=== PATIENT | male | born 1980 | race American Indian/Alaskan Native ===

== ENCOUNTER 2017-03-19 21:25 | Observation (INO) | payer MEDICAID, OTHER ==
[2017-03-19 21:31] VITALS: BMI 35.2
[2017-03-19] MEDS ORDERED: Nitroglycerin 2% Ointment Foilpak UD TOP STA (21:48)
[2017-03-19] MEDS ORDERED: Enoxaparin 120 mg Syringe SC STA (21:52)
--- NOTE | 2017-03-19 22:04 | ED PDOC ---
Arrival/HPI - General Chief Complaint: Chest Pain Time Seen by Provider: 03/19/17 21:46 Historian: Patient - History of Present Illness Narrative History of Present Illness (Text): 03/19/17 21:46 Andrea Sorto is a 36 year old male, whose past medical history includes smoking and hypertension, complaining of 1 day duration of nausea and chest pain with shortness of breath and dyspnea on exertion. Patient states that there are no relieving or exacerbating symptoms. Patient denies any fevers, chills, or any other complaint at this time. PMD: None Time/Duration: 24 hours Symptom Onset: Gradual Symptom Course: Unchanged Severity Level: Mild Activities at Onset: Rest Context: Home Past Medical History - Provider Review Nursing Documentation Reviewed: Yes - Infectious Disease Hx of Infectious Diseases: None - Tetanus Immunization Tetanus Immunization: Unknown - Cardiac Hx Hypertension: Yes - Pulmonary Hx Asthma: Yes Hx Bronchitis: Yes - Psychiatric Hx Depression: No Hx Emotional Abuse: No Hx Physical Abuse: No Hx Substance Use: Yes - Surgical History Hx Orthopedic Surgery: Yes (R LEG SURGERY) Other/Comment: R ankle surgery - Anesthesia Hx Anesthesia: Yes Hx Anesthesia Reactions: No Hx Malignant Hyperthermia: No - Suicidal Assessment Feels Threatened In Home Enviroment: No Family/Social History - Physician Review Nursing Documentation Reviewed: Yes Family/Social History: No Known Family HX Smoking Status: Former Smoker Hx Alcohol Use: Yes Frequency of alcohol use: Socially Hx Substance Use: Yes Substance used: majuana - last used 03/18/2017 Hx Substance Use Treatment: No Allergies/Home Meds Allergies/Adverse Reactions: Allergies No Known Allergies Allergy (Verified 06/30/14 15:27) Physical Exam - Physical Exam Narrative Physical Exam (Text): - Review of Systems Constitutional: Normal. absent: Fatigue, Weight Change, Fevers Eyes: Normal ENT: Normal Respiratory: Shortness of breath. Dyspnea on exertion. absent: Cough, Sputum Cardiovascular: Chest Pain absent: Palpitations, Syncope Gastrointestinal: Nausea absent: Abdominal pain, Diarrhea, Vomiting Genitourinary: Normal. absent: Dysuria, Frequency, Hematuria Musculoskeletal: Normal. absent: Arthralgias, Back Pain, Neck Pain Skin: Normal Neurological: Normal absent: Focal Weakness Endocrine: Normal Hemo/Lymphatic: Normal Psychiatric: Normal - Physical exam Patient appears age appropriate, speaking full sentences without difficulty. - Systems Exam Head: Present: Atraumatic, Normocephalic Pupils: Present: PERRL Extraocular Muscles: Present: EOMI Conjunctiva: Present: Normal Mouth: Present: Moist Mucous Membranes Neck: Present: Normal Range of Motion. No: MIDLINE TENDERNESS, Paraspinal Tenderness Respiratory/Chest: Present: Clear to Auscultation, Good Air Exchange. No: Respiratory Distress, Accessory Muscle Use, Tachypneic Cardiovascular: Present: Regular Rate and Rhythm, Normal S1, S2, Peripheral Pulses Present. No: Murmurs Abdomen: Present: Normal Bowel Sounds, No: Tenderness, Peritoneal Signs, Rebound, Guarding, Distention Back: Present: Normal Inspection. No: Midline Tenderness, Paraspinal Tenderness Upper Extremity: Present: Normal Inspection. No: Cyanosis, Edema Lower Extremity: Present: Normal Inspection. No: Edema Neurological: Present: GCS=15, Speech Normal, cranial nerves II through XII fully intact with no cerebellar abnormality, neuro-sensory fully intact. No focal neurological deficits. Skin: Present: Warm, Dry, Normal Color. No: Rashes Lymphatic: Present: OX3, NI, NC Psychiatric: Present: Alert, Oriented x 3, Normal Insight, Normal Concentration Vital Signs Reviewed: Yes Vital Signs Temp Pulse Resp BP Pulse Ox 03/19/17 22:05 97.8 F 03/19/17 21:25 45 L 20 189/117 H 98 Temperature: Afebrile Blood Pressure: Hypertensive Pulse: Bradycardic Respiratory Rate: Normal Medical Decision Making ED Course and Treatment: 03/19/17 21:46 Impression: 36 year old male complaining of nausea and chest pain with shortness of breath and dyspnea on exertion for 1 day. States he has a hx of smoking and HTN. Differential Diagnosis include but are not limited to: ACS vs. Pneumonia Plan: -- EKG -- Chest X-ray -- Labs -- Aspirin, Lovenox, and Nitro-Bid -- Reassess and disposition Prior Visits: Notes and results from previous visits were reviewed. Patient last seen in ED on 07/03/14 for an evaluation of 2 days duration of epigastric abdominal pain. Patient was discharged home. Progress Notes: EKG shows Sinus bradycardia at [address]-depression in Lateral leads. J-point ST-elevation in precordial leads. with no prior for comparison. Interpreted by me. 03/19/17 21:[address] Mathias in detail and EKG sent, who states to start treating as ACS with aspirin, nitroglycerin, anticoagulants. States that this is not a code STEMI. 03/19/17 23:01 Patient started to complain of shortness of breath. Repeat EKG shows no evolving changes. Patient is speaking in full sentences without difficulty. CXR shows cardiomegaly with some vasc. congestion, no infiltrates. Interpreted by me. lasix ordered 03/19/17 23:26 pt in no distress at this time aware of and agrees with obs in the hospital states he has no PMD dw Tracey Jones and Dorota Irwin, aware of and agree with obs/tele 03/19/17 23:30 - Lab Interpretations Lab Results: 03/19/17 22:24 03/19/17 22:24 Lab Results 03/19/17 22:24: Sodium 140, Potassium 3.7, Chloride 104, Carbon Dioxide 24, Anion Gap 16, BUN 13, Creatinine 1.0, Est GFR ( Amer) > 60, Est GFR (Non- Af Amer) > 60, Random Glucose 108, Calcium 10.2, Total Bilirubin 0.8, AST 34, ALT 52, Alkaline Phosphatase 84, Lactate Dehydrogenase 612, Total Creatine Kinase 563 H, CK-MB (CK-2) 5.0 H, CK-MB (CK-2) % 0.9 L, Troponin I 0.02, NT-Pro- B Natriuret Pep 694 H, Total Protein 8.2, Albumin 4.9 H, Globulin 3.3, Albumin/ Globulin Ratio 1.5 03/19/17 22:24: PT 10.5, INR 0.97, APTT 26.8 03/19/17 22:24: WBC 10.5, RBC 5.08, Hgb 16.0, Hct 46.0, MCV 90.6, MCH 31.5, MCHC 34.8, RDW 13.4, Plt Count 223, MPV 10.9, Gran % 85.6 H, Lymph % (Auto) 11.0 L, Darke % (Auto) 3.1, Eos % (Auto) 0.1 L, Baso % (Auto) 0.2, Gran # 8.99 H , Lymph # 1.2, Darke # 0.3, Eos # 0.0, Baso # 0.02 I have reviewed the lab results: Yes - RAD Interpretation Radiology Orders: 03/19/17 21:49 CHEST PORTABLE [RAD] Stat - Medication Orders Current Medication Orders: Aspirin (Ecotrin) 81 mg PO DAILY GLENN Atorvastatin Calcium (Lipitor) 80 mg PO STAT STA Stop: 03/19/17 23:24 Enoxaparin Sodium (Lovenox) 110 mg SC Q24H GLENN PRN Reason: Protocol Lisinopril (Zestril) 5 mg PO STAT STA Stop: 03/19/17 23:24 Lisinopril (Zestril) 5 mg PO DAILY GLENN Metoprolol Tartrate (Lopressor) 25 mg PO STAT STA Stop: 03/19/17 23:23 Metoprolol Tartrate (Lopressor) 25 mg PO BID GLENN Nitroglycerin (Nitrostat Sl Tab) 0.3 mg SL Q5M PRN PRN Reason: chest pain Pantoprazole Sodium (Protonix Ec Tab) 40 mg PO ACB GLENN Discontinued Medications Aspirin (Aspirin Chewable) 324 mg PO STAT STA Stop: 03/19/17 21:49 Last Admin: 03/19/17 22:00 Dose: 324 mg Enoxaparin Sodium (Lovenox) 110 mg SC STAT STA PRN Reason: Protocol Stop: 03/19/17 21:53 Last Admin: 03/19/17 22:16 Dose: 110 mg Furosemide (Lasix) 40 mg IVP STAT STA Stop: 03/19/17 23:12 Nitroglycerin (Nitro-Bid 2% Oint) 1 ea TOP STAT STA Stop: 03/19/17 21:49 Last Admin: 03/19/17 22:00 Dose: 1 ea - Scribe Statement The provider has reviewed the documentation as recorded by the Tania Clinton Provider Scribe Attestation: All medical record entries made by the Scribe were at my direction and personally dictated by me. I have reviewed the chart and agree that the record accurately reflects my personal performance of the history, physical exam, medical decision making, and the department course for this patient. I have also personally directed, reviewed, and agree with the discharge instructions and disposition. Disposition/Present on Arrival - Present on Arrival Any Indicators Present on Arrival: No History of DVT/PE: No History of Uncontrolled Diabetes: No Urinary Catheter: No History of Decub. Ulcer: No History Surgical Site Infection Following: None - Disposition Have Diagnosis and Disposition been Completed?: Yes Diagnosis: Chest pain Disposition: HOSPITALIZED Disposition Time: 23:27 Patient Plan: Observation Patient Problems: Current Active Problems Problem Status Onset Chest pain Acute Condition: FAIR Discharge Instructions (ExitCare): Chest Pain (ED) Referrals: PCP,NO [Primary Care Provider] - Follow up with primary
[2017-03-19 22:25] LABS: ADD MANUAL DIFF? NO
[2017-03-19 22:34] LABS: BASO # 0.02 K/mm3 (0.0-2.0); BASO % 0.2 % (0.0-3.0); EOS % 0.1 % (1.5-5.0); GRAN # 8.99 (1.4-6.5); GRAN % 85.6 % (50.0-68.0); LYMPH # 1.2 (1.2-3.4); MEAN CELL VOLUME 90.6 fL (80.0-105.0); MEAN CORPUSCULAR HEMOGLOBIN 31.5 pg (25.0-35.0); MEAN CORPUSCULAR HGB CONC 34.8 g/dl (31.0-37.0); MEAN PLATELET VOLUME 10.9 fl (7.0-11.0); MONO # 0.3 (0.1-0.6); MONO % 3.1 % (1.0-6.0); PLATELET COUNT 223 10^3/uL (120.0-450.0); RED CELL DISTRIBUTION WIDTH 13.4 % (11.5-14.5); WHITE BLOOD COUNT 10.5 10^3/ul (4.5-11.0)
[2017-03-19 22:46] LABS: INR 0.97 (0.93-1.08); PARTIAL THROMBOPLASTIN TIME 26.8 Seconds (23.7-30.8)
[2017-03-19 22:48] LABS: ALB/GLOB RATIO 1.5 (1.1-1.8); ALKALINE PHOSPHATASE 84 U/L (38-133); ALT/SGPT 52 U/L (7-56); AST/SGOT 34 U/L (15-59); BILIRUBIN,TOTAL 0.8 mg/dL (0.2-1.3); BLOOD UREA NITROGEN 13 mg/dL (7-21); CALCIUM 10.2 mg/dL (8.4-10.5); CARBON DIOXIDE 24 mmol/L (21-33); CHLORIDE 104 mmol/L (98-107); GFR AFRICAN-AMERICAN > 60; GLUCOSE,RANDOM 108 mg/dL (70-110); POTASSIUM 3.7 mmol/L (3.6-5.0); SODIUM 140 mmol/L (132-148); TOTAL PROTEIN 8.2 g/dL (5.8-8.3)
[2017-03-19 22:54] LABS: TROPONIN I 0.02 ng/mL
[2017-03-19] MEDS ORDERED: Morphine 2 mg/ml ISec IVP PRN (23:25)
[2017-03-19] MEDS ORDERED: Levalbuterol 1.25 MG/3 ML Inhal Soln UD IH STA (23:44)
[2017-03-20] MEDS: Famotidine 20mg/50ml 20 MG/50 ML BAG IV SCH ×3 (00:22→21:29)
--- NOTE | 2017-03-20 00:26 | CP.PCM.HP ---
History of Present Illness - History of Present Illness History of Present Illness: CC: Chest pain and vomiting x4 This patient is a 36yo M who comes in with typical chest pain since 12 noon today; substernal not radiating anywhere associated with SOB and vomiting times 4 NBNB. Patient states he has never had chest pain like this before. Is also complaining of weakness, generalized since the event. Patient was at rest when the chest pain came on. Sublingual nitroglycerin helped the pain. Patient denies fevers/chills, HOU, abdominal pain, V/D, dysuria/freq/urg, leg swelling/ pain, decreased exercise tolerance, sleeps with 2 pillows and had unlimited exercise tolerance previously. PMhx: HTN, Mild Intermittent Asthma never been intubated Allergies: None Surg: None Meds: Proventil PRN, no others FamHx: Father [place] at 50 w/ CABG, Grandmother of [place] at 47, grandfathers sister of [place] at 33, no cancer, HTN, HLD, DM in all family members Social: Lives at home, currently unemployed, admits to daily marijuana use, stopped smoking 5 years ago, 1ppd/20 years previously, denies illicit drugs Present on Admission - Present on Admission Any Indicators Present on Admission: No History of DVT/PE: No History of Uncontrolled Diabetes: No Urinary Catheter: No Decubitus Ulcer Present: No Past Patient History - Infectious Disease Hx of Infectious Diseases: None - Tetanus Immunizations Tetanus Immunization: Unknown - Past Social History Smoking Status: Former Smoker - CARDIAC Hx Hypertension: Yes - PULMONARY Hx Asthma: Yes Hx Bronchitis: Yes - PSYCHIATRIC Hx Depression: No Hx Emotional Abuse: No Hx Physical Abuse: No Hx Substance Use: Yes - SURGICAL HISTORY Hx Orthopedic Surgery: Yes (R LEG SURGERY) Other/Comment: R ankle surgery - ANESTHESIA Hx Anesthesia: Yes Hx Anesthesia Reactions: No Hx Malignant Hyperthermia: No Meds Allergies/Adverse Reactions: Allergies Allergy/AdvReac Type Severity Reaction Status Date / Time No Known Allergies Allergy Verified 06/30/14 15:27 Physical Exam - Constitutional Additional comments: lethargic male sitting up in bed, speaking in full sentences coherently, diaphoretic - Head Exam Head Exam: ATRAUMATIC - Eye Exam Eye Exam: EOMI - ENT Exam ENT Exam: Mucous Membranes Moist - Neck Exam Neck exam: Positive for: Full Rom. Negative for: Lymphadenopathy - Respiratory Exam Respiratory Exam: Wheezes (b/l crackles at bases), NORMAL BREATHING PATTERN. absent: Accessory Muscle Use, Chest Wall Tenderness, Decreased Breath Sounds, Clear to Auscultation Bilateral, Prolonged Expiratory Phase, Respiratory Distress, Stridor - Cardiovascular Exam Cardiovascular Exam: REGULAR RHYTHM, +S1, +S2. absent: Tachycardia ( bradycardia ), Systolic Murmur - GI/Abdominal Exam GI & Abdominal Exam: Normal Bowel Sounds, Soft. absent: Tenderness - Rectal Exam Rectal Exam: Deferred - Extremities Exam Extremities exam: Positive for: full ROM, normal capillary refill, normal inspection, pedal pulses present. Negative for: calf tenderness, joint swelling , pedal edema, tenderness - Back Exam Back exam: NORMAL INSPECTION. absent: CVA tenderness (L), CVA tenderness (R) - Neurological Exam Neurological exam: Alert, CN II-XII Intact, Oriented x3 - Psychiatric Exam Psychiatric exam: Normal Affect - Skin Skin Exam: Intact Results - Vital Signs Recent Vital Signs: Last Vital Signs Temp 97.8 F 03/19/17 22:05 Pulse 45 L 03/19/17 21:25 Resp 20 03/19/17 21:25 BP 161/79 H 03/20/17 00:21 Pulse Ox 98 03/19/17 21:25 - Labs Result Diagrams: 03/19/17 22:24 03/19/17 22:24 Assessment & Plan - Assessment and Plan (Free Text) Assessment: 36yo M admitted for Chest Pain ACS -Aspirin High dose, Lipitor 80, Plavix 300, Lovenox 110 given in ED -will continue Lipitor, Aspirin 81, Plavix 75, Lovenox 110 BID, Lisinopril low dose, hold beta jesse while bradycardic -Cardiology Consult: Dr. Mathias; appreciate recs; EKG originally showed suspicious ST segment elevations in V1/V2/V3 however on comparison from EKG from 2015 looks unchanged with a possible incomplete RBBB -NPO for possible cath procedure -strong family history; smoker; HTN -CKMB 5.0, BNP 694, troponin .02; will trend; likely new onset CHF -Telemetry monitoring -Morphine PRN, Sublingual Nitro PRN; Supplemental O2 PRN only if hypoxic as it is detrimental in [place] to give supplemental O2 when there is no hypoxia -STAT Echo; f/u results HTN -started Lisinopril 5mg; titrate accordingly Mild Intermittent Asthma -Xopenex PRN Prophylaxis -Lovenox 110 -NPO -Pepcid Case dicussed and seen with Dr. Irwin Decision To Admit - Pt Status Changed To: Hospital Disposition Of: Inpatient Admission - Admit Certification Admit to Inpatient:: After my assessment, the patient will require hospitalization for at least two midnights. This is because of the severity of symptoms shown, intensity of services needed, and/or the medical risk in this patient being treated as an outpatient. - . Bed Request Type: Telemetry Admitting Physician: Jamee Irwin
[2017-03-20 02:31] LABS: CHOLESTEROL 193 mg/dL (130-200)
[2017-03-20 06:44] LABS: ADD MANUAL DIFF? NO
[2017-03-20 07:03] LABS: BASO # 0.01 K/mm3 (0.0-2.0); BASO % 0.1 % (0.0-3.0); EOS % 0.1 % (1.5-5.0); GRAN # 9.21 (1.4-6.5); GRAN % 80.7 % (50.0-68.0); HEMATOCRIT 42.6 % (42.0-52.0); LYMPH # 1.6 (1.2-3.4); LYMPH % 13.8 % (22.0-35.0); MEAN CELL VOLUME 90.3 fL (80.0-105.0); MEAN CORPUSCULAR HEMOGLOBIN 30.5 pg (25.0-35.0); MEAN CORPUSCULAR HGB CONC 33.8 g/dl (31.0-37.0); MEAN PLATELET VOLUME 10.9 fl (7.0-11.0); MONO # 0.6 (0.1-0.6); MONO % 5.3 % (1.0-6.0); PLATELET COUNT 214 10^3/uL (120.0-450.0); RED CELL DISTRIBUTION WIDTH 13.3 % (11.5-14.5); WHITE BLOOD COUNT 11.4 10^3/ul (4.5-11.0)
[2017-03-20 07:28] LABS: ALB/GLOB RATIO 1.3 (1.1-1.8); ALKALINE PHOSPHATASE 82 U/L (38-133); ALT/SGPT 42 U/L (7-56); AST/SGOT 78 U/L (15-59); BILIRUBIN,TOTAL 0.8 mg/dL (0.2-1.3); BLOOD UREA NITROGEN 13 mg/dL (7-21); CALCIUM 9.6 mg/dL (8.4-10.5); CARBON DIOXIDE 23 mmol/L (21-33); CHLORIDE 106 mmol/L (98-107); GFR AFRICAN-AMERICAN > 60; GLUCOSE,RANDOM 105 mg/dL (70-110); POTASSIUM 3.6 mmol/L (3.6-5.0); SODIUM 140 mmol/L (132-148); TOTAL PROTEIN 7.3 g/dL (5.8-8.3)
[2017-03-20] MEDS ORDERED: Pantoprazole 40 mg EC Tab PO SCH (07:30)
[2017-03-20 07:38] LABS: TROPONIN I 0.04 ng/mL
[2017-03-20 08:24] VITALS: O2SAT 99
[2017-03-20] MEDS ORDERED: Potassium Chloride 20 mEq ER Tab PO ONE (08:54)
[2017-03-20] MEDS ORDERED: Enoxaparin 120 mg Syringe SC SCH ×2 (10:00)
--- NOTE | 2017-03-20 12:53 | RAD ---
HISTORY: cough COMPARISON: No prior. FINDINGS: LUNGS: No active pulmonary disease. PLEURA: No significant pleural effusion identified, no pneumothorax apparent. CARDIOVASCULAR: Normal. OSSEOUS STRUCTURES: No significant abnormalities. VISUALIZED UPPER ABDOMEN: Normal. OTHER FINDINGS: None. IMPRESSION: No active disease.
[2017-03-20 13:08] LABS: TROPONIN I 0.04 ng/mL
[2017-03-20] MEDS ORDERED: Lidocaine 2% Inj (20ml) ONE (14:44)
[2017-03-20] MEDS ORDERED: Phenylephrine 10 mg/ml Inj ONE (14:44)
[2017-03-20] MEDS ORDERED: Iodixanol 320 MG/ML 200 ML BOTTLE IV ONE (14:45)
[2017-03-20] MEDS ORDERED: Nitroglycerin 50mg in D5W 50 MG/250 ML BOTTLE IV ONE (14:45)
[2017-03-20] MEDS ORDERED: Midazolam 2 MG/2 ML VIAL ONE (14:45)
[2017-03-20] MEDS ORDERED: Iodixanol 320 MG/ML 100 ML BOTTLE IV ONE (14:45)
[2017-03-20] MEDS ORDERED: Iohexol 350mgl/ml 50 ML ONE (14:45)
--- NOTE | 2017-03-20 15:32 | CON ---
DATE: 03/20/2017 REASON FOR CONSULTATION: Acute coronary syndrome, unstable angina. BRIEF CLINICAL HISTORY: This is a 36-year-old male with past medical history of hypertension for many years, noncompliance with medication, not taking medicine for at least ____ years. Came in with complaint of nausea, vomiting, and had chest pain a week ago, with chest pain associated with nausea and vomiting, so I was called from the ER for evaluation for code STEMI. EKG is not consistent with code STEMI, so code STEMI was canceled and patient was treated in acute coronary syndrome. The patient got Lovenox, aspirin and Plavix. Since then patient does not have chest pain but still feels nauseous feeling, unable to hold anything since last night. The patient says that he had chest pain a week ago and then he got better. Yesterday morning, he had nausea and vomiting. Last night he ate outside and then he developed abdominal cramps. He was going for a job interview but could not go because of abdominal cramps and started vomiting and nauseous, so came to the Emergency Room. Also mentioned to Emergency Room physician that he had chest pain a week so they were looking for code STEMI and it was about to be activated code STEMI which was canceled and was treated as unstable angina because of abnormal EKG, half line/borderline elevation of inferior lead II, III, aVF and symmetrical T inversion in V5, V6 and one in aVL. Currently, the patient is chest pain free since he got the Lovenox, nitrates, beta jesse, aspirin and Plavix. No chest pain but still feels nauseous. PAST MEDICAL HISTORY: Significant for hypertension occasional; history of asthma. Not on medication for the last at least ____ years. He was told that he needs blood pressure medication. SOCIAL HISTORY: Used to smoke a Pack a day, cut down to 1/2 a pack a day, but still smokes marijuana. FAMILY HISTORY: Significant for coronary artery disease from the paternal uncle. The patient had a stent and CABG, but mom and dad did not have any stent in the coronaries. ALLERGIES: No known drug allergy. SOCIAL HISTORY: Currently is unemployed. Used to smoke a pack a day for the last 20 yrs. but has now cut down, but still smokes marijuana. PAST SURGICAL HISTORY: Nothing significant. CURRENT MEDICATION: None. ALLERGIES: No known drug allergies. REVIEW OF SYSTEMS: As per HPI. PHYSICAL EXAMINATION: VITAL SIGNS: Temperature afebrile, heart rate 47, blood pressure 165/70. HEENT: PERRLA. Extraocular muscles intact. NECK: Supple. No carotid bruits. No thyromegaly. CHEST: Clear to auscultation. HEART: S1, S2 regular. ABDOMEN: Soft. EXTREMITIES: Clubbing and cyanosis negative. BLOOD WORKUP: As follows: WBC 11.4, hemoglobin 14.4, hematocrit 42.6, platelet count 214. Chemistry shows sodium 140, potassium 3.6, chloride 104, carbon dioxide 23, anion gap of 15, BUN 13, creatinine 1.0. AST 78, ALT 42. First CPK 563, MB fraction 0.9, troponin 0.02. This morning, troponin is pending. EKG shows normal sinus, borderline ST elevation with Q-waves II, III, aVF; symmetrical T inversion in V5, V6, I and aVL, and poor RR progression consistent with LVH with strain pattern; cannot rule out underlying ischemia. IMPRESSION: Acute coronary syndrome, unstable angina, substance abuse, tobacco abuse, hypertension, multiple risk factors for coronary artery disease including noncompliance with medication and hypertension. So far, first troponin is negative and repeat troponin is pending. RECOMMENDATION: We will treat as unstable angina. Continue aspirin, continue Plavix, continue Lovenox. Last night took ____; will hold the morning dose. Continue beta jesse. Send the urine for tox screen. Will do the cardiac catheterization at 3 p.m. Discussed with the patient. Will keep n.p.o. after breakfast. Discussed with the patient risks, benefits, alternatives. The patient understands. His uncle has a stent also, so patient knows the procedure. Thank you, Dr. Gutierrez, for providing the opportunity in taking care of the patient. Will get echo to assess LV function. We will supplement also potassium, 3.6. Ronel Mathias MD cc: Mariia Gutierrez MD 305 TT: 03/20/2017 11:29:07 Confirmation # [id number] Dictation # [id number] syl RACHEL
[2017-03-20] MEDS ORDERED: Bacitracin 500 Units/gm Oint Foilpak UD TOP ONE (16:07)
[2017-03-20] MEDS ORDERED: Sodium Chloride 0.9% 1,000 ML IV SCH (16:15)
--- NOTE | 2017-03-20 18:08 | CARD ---
APPROVED REPORT EKG Measurement Heart [id number] <Conclusion> Marked sinus bradycardia with sinus arrhythmia Possible Left atrial enlargement Septal infarct, age undetermined ST & T wave abnormality, consider lateral ischemia Abnormal ECG
--- NOTE | 2017-03-20 18:10 | CARD ---
APPROVED REPORT EKG Measurement Heart [id number] <Conclusion> Marked sinus bradycardia with sinus arrhythmia Possible Left atrial enlargement Septal infarct, age undetermined ST & T wave abnormality, consider lateral ischemia Abnormal ECG
[2017-03-20] MEDS ORDERED: Bacitracin 500 Units/gm Oint Foilpak UD ONE (18:35)
--- NOTE | 2017-03-20 18:53 | PN ---
DATE: 03/20/2017 REASON FOR CONSULTATION AND FOLLOWUP: Acute coronary syndrome, unstable angina, status post cardiac catheterization. BRIEF CLINICAL HISTORY: A 36-year-old male with history of substance abuse, hypertension, noncomplia nce with medication, admitted with chest pain. Initially ER ____ activate code STEMI was cancelled. The patient underwent cardiac catheterization, was grossly abnormal 12-lead EKG and chest pain, card iac catheterization revealed left main essentially free of significant disease, trifurcated LAD, circ umflex and ramus, LAD and ramus essentially free of significant disease, distal circumflex is diffuse ly diseased 55% -60% stenosis, no flow limiting stenosis, RCA is a moderate caliber vessel essentiall y free of significant disease and LV gram shows ejection fraction 50%, ____ 25. RECOMMENDATION: Aggressive control of blood pressure. Discontinue Plavix, continue baby aspirin. D iscontinue Lipitor 80 mg, start amlodipine 10 mg and start lisinopril 40 mg from tomorrow. We will g gracie Lasix here because ____ was elevated and start hydrochlorothiazide from tomorrow and put hydralaz ine p.r.n. We will follow with you. Thank you, Dr. Gutierrez, for providing the opportunity in taking care of this hypertensive, heart diseas e patient. Hypertensive, heart disease, noncompliance with medication. Complete cessation recommend ation. Complete cessation of smoking and complete cessation of substance abuse and compliance with t he medication. Thank you Dr. Gutierrez for providing the opportunity in taking care of this patient. Ronel Mathias MD cc:Mariia Gutierrez MD 305 TT: 03/20/2017 18:52:11 Confirmation # [id number] Dictation # [id number] shay
--- NOTE | 2017-03-20 18:56 | CARD ---
APPROVED REPORT Procedure(s) performed: Left Heart Catheterization HISTORY The patient is a 36 year-old male with a history of : chronic lung disease, tobacco history() : The patient is a current smoker , hypertension , dyslipidemia , Hx of HTN not taking Meds more than Three years , Hx of sustance abuse admitted with ACS and dynamic ST T changes,. INDICATION The indication(s) include : unstable angina . CASE TECHNIQUE The patient was brought urgently to the Cardiac Catheterization Laboratory in a fasting state and was prepped and draped in a sterile manner. The left wrist was infiltrated with 2% Lidocaine subcutaneous anesthesia. A 6 Fr Glidesheath (Radial) sheath was inserted into the left radial artery without difficulty. Coronary angiography was performed using coronary diagnostic catheters. The left coronary system was accessed and visualized with a Diagnostic ,5 Fr JL 4 catheter. The right coronary system was accessed and visualized with a Diagnostic ,5 Fr JR 4 catheter. The left ventricle was accessed and visualized with a 5 Fr Pigtail 145 (Angled) catheter. Left ventricular/Aortic Valve gradient assessed on pullback. Left ventriculogram was performed in WOODS projection. Closure device was deployed with a Fr TR Band (Large) without any complications. The patient tolerated the procedure well and there were no complications associated with the procedure. Vessel Analysis The patient's coronary anatomy is co-dominant. The left main coronary artery is a large size vessel without significant stenosis. The left main trifurcates to the left anterior descending, circumflex, and ramus. The left anterior descending artery is a large size vessel without significant stenosis. The first diagonal branch is a large size vessel with intimal irregularities. The second diagonal branch is a medium size vessel without significant stenosis. The circumflex artery is a large size vessel with diffuse calcification noted throughout this vessel and with significant stenosis. There is a 55% stenosis in the very distal distal segment. The first obtuse marginal branch is a small size vessel with intimal irregularities and without significant stenosis. The second obtuse marginal branch is a small size vessel with intimal irregularities and without significant stenosis. The left posterior descending artery is a medium size vessel with diffuse calcification noted throughout this vessel and without significant stenosis. The ramus intermedius artery is a large size vessel with intimal irregularities. The right coronary artery is a large size vessel without significant stenosis. The right posterior descending artery is a large size vessel without significant stenosis. The right posterolateral branch is a medium size vessel with diffuse calcification noted throughout this vessel and without significant stenosis. Left Ventricle The left ventricle is borderline in size with border line decreased contractility. Non-Ischemic cardiomyopathy. The left ventricular ejection fraction is estimated to be 45-50%. The left ventricular end diastolic pressure is 20-25 mmHg. There was no gradient across the aortic valve upon pullback. Conclusion Non Obstructive CAD limited to Distal Cx 55% stenosis HTN herat disease Low normal LV FX. 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 Gutierrez
[2017-03-21 06:27] LABS: ADD MANUAL DIFF? NO
[2017-03-21 06:29] LABS: BASO # 0.03 K/mm3 (0.0-2.0); BASO % 0.3 % (0.0-3.0); EOS # 0.1 (0.0-0.7); EOS % 0.9 % (1.5-5.0); GRAN # 9.02 (1.4-6.5); GRAN % 76.1 % (50.0-68.0); LYMPH # 1.9 (1.2-3.4); LYMPH % 15.9 % (22.0-35.0); MEAN CELL VOLUME 91.3 fL (80.0-105.0); MEAN CORPUSCULAR HEMOGLOBIN 31.3 pg (25.0-35.0); MEAN CORPUSCULAR HGB CONC 34.3 g/dl (31.0-37.0); MEAN PLATELET VOLUME 10.3 fl (7.0-11.0); MONO # 0.8 (0.1-0.6); MONO % 6.8 % (1.0-6.0); PLATELET COUNT 190 10^3/uL (120.0-450.0); RED CELL DISTRIBUTION WIDTH 13.6 % (11.5-14.5); WHITE BLOOD COUNT 11.9 10^3/ul (4.5-11.0)
[2017-03-21 06:44] LABS: ALB/GLOB RATIO 1.4 (1.1-1.8); ALKALINE PHOSPHATASE 65 U/L (38-133); ALT/SGPT 47 U/L (7-56); AST/SGOT 31 U/L (15-59); BILIRUBIN,TOTAL 0.9 mg/dL (0.2-1.3); BLOOD UREA NITROGEN 14 mg/dL (7-21); CALCIUM 9.6 mg/dL (8.4-10.5); CARBON DIOXIDE 25 mmol/L (21-33); CHLORIDE 104 mmol/L (98-107); GFR AFRICAN-AMERICAN > 60; GLUCOSE,RANDOM 104 mg/dL (70-110); POTASSIUM 3.5 mmol/L (3.6-5.0); SODIUM 139 mmol/L (132-148); TOTAL PROTEIN 7.4 g/dL (5.8-8.3)
[2017-03-21] MEDS ORDERED: Potassium Chloride 40 mEq/30 ml LIQ UD PO ONE (07:00)
[2017-03-21] MEDS ORDERED: Potassium Chloride 20 mEq ER Tab PO ONE (07:53)
[2017-03-21] MEDS ORDERED: Magnesium Citrate Oral SOL (300 ml) PO ONE (11:10)
--- NOTE | 2017-03-21 11:10 | RAD ---
HISTORY: r/o obstruction COMPARISON: No prior. FINDINGS: BOWEL: Normal. No obstruction. No free air. BONES: Normal. OTHER FINDINGS: None. IMPRESSION: No active disease.
--- NOTE | 2017-03-21 11:41 | CP.PCM.PN ---
<Suhail Hedrick - Last Filed: 03/21/17 11:45> Subjective - Date & Time of Evaluation Date of Evaluation: 03/21/17 Time of Evaluation: 11:40 - Subjective Subjective: Med progress note. Attending: Dr. Gutierrez Pt seen/examined at bedside. No acute distress. No events overnight. Feeling constipated, abdomen soft. No fevers, chills, vomiting, diarrhea. Objective - Vital Signs/Intake and Output Vital Signs (last 24 hours): Temp Pulse Resp BP Pulse Ox 97.3 F L 48 L 20 160/80 H 99 03/21/17 06:00 03/21/17 06:00 03/21/17 06:00 03/21/17 09:44 03/21/17 06:00 Intake and Output: 03/21/17 03/21/17 06:59 18:59 Intake Total 660 Output Total 402 Balance 258 - Medications Medications: Current Medications Acetaminophen (Tylenol 325mg Tab) 650 mg PO Q6H PRN PRN Reason: Fever >100.4 F Last Admin: 03/21/17 04:45 Dose: 650 mg Amlodipine Besylate (Norvasc) 10 mg PO DAILY [facility] Last Admin: 03/21/17 09:44 Dose: 10 mg Aspirin (Ecotrin) 81 mg PO DAILY [facility] Last Admin: 03/21/17 09:41 Dose: 81 mg Hydralazine HCl (Apresoline) 10 mg PO QID PRN PRN Reason: FOR SBP>17- and diastolic>100 Last Admin: 03/21/17 05:33 Dose: 10 mg Hydrochlorothiazide (Hydrodiuril) 25 mg PO DAILY [facility] Last Admin: 03/21/17 09:41 Dose: 25 mg Famotidine (Pepcid 20mg/50ml Premix) 20 mg in 50 mls @ 100 mls/hr IV Q12 [facility] Last Admin: 03/20/17 21:29 Dose: 100 mls/hr Lisinopril (Zestril) 40 mg PO DAILY [facility] Metoprolol Tartrate (Lopressor) 25 mg PO BID [facility] Last Admin: 03/21/17 09:41 Dose: 25 mg Morphine Sulfate (Morphine) 2 mg IVP Q4H PRN PRN Reason: chest pain Ondansetron HCl (Zofran Inj) 4 mg IVP Q4H PRN PRN Reason: Nausea/Vomiting Last Admin: 03/20/17 01:13 Dose: 4 mg - Labs Labs: 03/21/17 06:25 03/21/17 06:25 PT 10.5 Seconds (9.9-11.8) 03/19/17 22:24 INR 0.97 (0.93-1.08) 03/19/17 22:24 APTT 26.8 Seconds (23.7-30.8) 03/19/17 22:24 - Constitutional Appears: Non-toxic, No Acute Distress - Head Exam Head Exam: ATRAUMATIC, NORMAL INSPECTION, NORMOCEPHALIC - Eye Exam Eye Exam: EOMI - ENT Exam ENT Exam: Mucous Membranes Moist - Neck Exam Neck Exam: Full ROM, Normal Inspection - Respiratory Exam Respiratory Exam: NORMAL BREATHING PATTERN. absent: Respiratory Distress - Cardiovascular Exam Cardiovascular Exam: +S1, +S2 - GI/Abdominal Exam GI & Abdominal Exam: Soft, Normal Bowel Sounds. absent: Tenderness - Extremities Exam Extremities Exam: Full ROM, Normal Inspection - Neurological Exam Neurological Exam: Alert, Awake, Oriented x3 - Psychiatric Exam Psychiatric exam: Normal Affect, Normal Mood - Skin Skin Exam: Dry, Intact, Normal Color, Warm Assessment and Plan - Assessment and Plan (Free Text) Assessment: This is a 36 yo male with past medical hx of asthma and HTN admitted for Chest Pain 1. r/o ACS -Aspirin High dose, Lipitor 80, Plavix 300, Lovenox 110 given in ED -will continue Lipitor, Aspirin 81, Plavix 75 (discontinued), Lisinopril 40, hold beta jesse while bradycardic -Cardiology Consult: Dr. Mathias; appreciate recs; EKG originally showed suspicious ST segment elevations in V1/V2/V3 however on comparison from EKG from 2015 looks unchanged with a possible incomplete RBBB -magnesium citrate for constipation -pt has strong family hx of cardiac disease -Telemetry monitoring -Morphine PRN, Sublingual Nitro PRN; Supplemental O2 PRN only if hypoxic as it is detrimental in [place] to give supplemental O2 when there is no hypoxia -echo pending 2. HTN -started Lisinopril 40mg; titrate accordingly -added HCTZ and lopressor -continue norvasc 10 daily 3. Mild Intermittent Asthma -Xopenex PRN 3. GI/DVT Prophylaxis -scds -Pepcid michelle Gutierrez <Mariia Gutierrez - Last Filed: 03/21/17 15:13> Objective - Vital Signs/Intake and Output Vital Signs (last 24 hours): Temp Pulse Resp BP Pulse Ox 98.6 F 49 L 18 157/97 H 99 03/21/17 12:00 03/21/17 12:00 03/21/17 12:00 03/21/17 12:00 03/21/17 06:00 Intake and Output: 03/21/17 03/21/17 06:59 18:59 Intake Total 660 Output Total 402 Balance 258 - Medications Medications: Current Medications Acetaminophen (Tylenol 325mg Tab) 650 mg PO Q6H PRN PRN Reason: Fever >100.4 F Last Admin: 03/21/17 04:45 Dose: 650 mg Amlodipine Besylate (Norvasc) 10 mg PO DAILY [facility] Last Admin: 03/21/17 09:44 Dose: 10 mg Aspirin (Ecotrin) 81 mg PO DAILY [facility] Last Admin: 03/21/17 09:41 Dose: 81 mg Carvedilol (Coreg) 6.25 mg PO BID [facility] Hydralazine HCl (Apresoline) 10 mg PO QID PRN PRN Reason: FOR SBP>17- and diastolic>100 Last Admin: 03/21/17 05:33 Dose: 10 mg Hydrochlorothiazide (Hydrodiuril) 25 mg PO DAILY [facility] Last Admin: 03/21/17 09:41 Dose: 25 mg Famotidine (Pepcid 20mg/50ml Premix) 20 mg in 50 mls @ 100 mls/hr IV Q12 [facility] Last Admin: 03/21/17 13:03 Dose: 100 mls/hr Lisinopril (Zestril) 40 mg PO DAILY [facility] Morphine Sulfate (Morphine) 2 mg IVP Q4H PRN PRN Reason: chest pain Ondansetron HCl (Zofran Inj) 4 mg IVP Q4H PRN PRN Reason: Nausea/Vomiting Last Admin: 03/20/17 01:13 Dose: 4 mg - Labs Labs: 03/21/17 06:25 03/21/17 06:25 PT 10.5 Seconds (9.9-11.8) 03/19/17 22:24 INR 0.97 (0.93-1.08) 03/19/17 22:24 APTT 26.8 Seconds (23.7-30.8) 03/19/17 22:24 Attending/Attestation - Attestation I have personally seen and examined this patient.: Yes I have fully participated in the care of the patient.: Yes I have reviewed all pertinent clinical information, including history, physical exam and plan: Yes Notes (Text): 03/21/17 15:08 36 year old male with past medical history of asthma and hypertension who presented with complaint of chest pain. He had concerning EKG findings and underwent cardiac cath with Dr. Mathias with findings showing nonobstructive CAD. He had uncontrolled blood pressure, secondary to noncompliance. He was started on lisinopril, norvasc, HCTZ, and metoprolol. He is on aspirin and statin. Today he complains of nausea/vomiting (not witnessed by staff) and abdominal pain. Complains of constipation. AXR was negative for obstruction; shows stools. He will be given dose of magnesium citrate. Hypokalemia was repleted. D/c planning likely after he has bowel movement. Counselled on medication compliance. Mariia Gutierrez MD Hospitalist.
[2017-03-21 12:28] VITALS: RESP 18
--- NOTE | 2017-03-21 12:41 | CARD ---
APPROVED REPORT EXAM: Two-dimensional and M-mode echocardiogram with Doppler and color Doppler. INDICATION 2D DIMENSIONS IVSd1.7 (0.7-1.1cm)LVDd4.7 (3.9-5.9cm) PWd1.6 (0.7-1.1cm)LVDs3.2 (2.5-4.0cm) FS (%) 32.8 %LVEF (%)61.3 (>50%) M-Mode DIMENSIONS Left Atrium (MM)4.20 (2.5-4.0cm)Aortic Root3.30 (2.2-3.7cm) Aortic Cusp Exc.2.10 (1.5-2.0cm) Aortic Valve AoV Peak Jhcuuimq061.0cm/Ronnie Peak GR.9mmHg Mitral Valve MV E Bdfsjvhi614.0cm/sMV A Fxtyeelq33.9cm/sE/A ratio2.3 TDI Lateral E' Peak V7.24cm/sMedial E' Peak V4.56cm/sE/Lateral E'14.4 E/Medial E'22.8 Tricuspid Valve TR Peak Memoocip542ax/sRAP [id number] Peak Gr.27mmHg [id number] LEFT VENTRICLE The left ventricle is normal size. There is mild concentric left ventricular hypertrophy. The left ventricular function is normal. The left ventricular ejection fraction is within the normal range. There is normal LV segmental wall motion. The left ventricular diastolic function is normal. RIGHT VENTRICLE The right ventricle is normal size. There is normal right ventricular wall thickness. The right ventricular systolic function is normal. ATRIA The left atrium is borderline dilated. The right atrium size is normal. AORTIC VALVE The aortic valve is normal in structure. There is trace aortic regurgitation. MITRAL VALVE The mitral valve is normal in structure. There is no mitral valve regurgitation noted. TRICUSPID VALVE The tricuspid valve is normal in structure. There is mild tricuspid regurgitation. There is mild pulmonary hypertension. GREAT VESSELS The aortic root is normal in size. The IVC is normal in size and collapses >50% with inspiration. PERICARDIAL EFFUSION There is no pericardial effusion. <Conclusion> The left ventricle is normal size. There is mild concentric left ventricular hypertrophy. The left ventricular function is normal. The left ventricular ejection fraction is within the normal range. There is normal LV segmental wall motion. The left ventricular diastolic function is normal. There is trace aortic regurgitation. There is mild tricuspid regurgitation. There is mild pulmonary hypertension.
[2017-03-21] MEDS: Famotidine 20mg/50ml 20 MG/50 ML BAG IV SCH (13:03)
--- NOTE | 2017-03-21 13:04 | CP.PCM.DIS ---
Provider - Provider Date of Admission: 03/19/17 23:27 Attending physician: Mariia Gutierrez MD Primary care physician: NO PRIMARY CARE PROVIDER Time Spent in preparation of Discharge (in minutes): 45 Hospital Course - Lab Results Lab Results: Most Recent Lab Values WBC 11.9 10^3/ul (4.5-11.0) H 03/21/17 06:25 RBC 5.04 10^6/uL (3.5-6.1) 03/21/17 06:25 Hgb 15.8 gm/dL (14.0-18.0) 03/21/17 06:25 Hct 46.0 % (42.0-52.0) 03/21/17 06:25 MCV 91.3 fL (80.0-105.0) 03/21/17 06:25 MCH 31.3 pg (25.0-35.0) 03/21/17 06:25 MCHC 34.3 g/dl (31.0-37.0) 03/21/17 06:25 RDW 13.6 % (11.5-14.5) 03/21/17 06:25 Plt Count 190 10^3/uL (120.0-450.0) 03/21/17 06:25 MPV 10.3 fl (7.0-11.0) 03/21/17 06:25 Gran % 76.1 % (50.0-68.0) H 03/21/17 06:25 Lymph % (Auto) 15.9 % (22.0-35.0) L 03/21/17 06:25 [place] % (Auto) 6.8 % (1.0-6.0) H 03/21/17 06:25 Eos % (Auto) 0.9 % (1.5-5.0) L 03/21/17 06:25 Baso % (Auto) 0.3 % (0.0-3.0) 03/21/17 06:25 Gran # 9.02 (1.4-6.5) H 03/21/17 06:25 Lymph # 1.9 (1.2-3.4) 03/21/17 06:25 [place] # 0.8 (0.1-0.6) H 03/21/17 06:25 Eos # 0.1 (0.0-0.7) 03/21/17 06:25 Baso # 0.03 K/mm3 (0.0-2.0) 03/21/17 06:25 PT 10.5 Seconds (9.9-11.8) 03/19/17 22:24 INR 0.97 (0.93-1.08) 03/19/17 22:24 APTT 26.8 Seconds (23.7-30.8) 03/19/17 22:24 Sodium 139 mmol/L (132-148) 03/21/17 06:25 Potassium 3.5 mmol/L (3.6-5.0) L 03/21/17 06:25 Chloride 104 mmol/L (98-107) 03/21/17 06:25 Carbon Dioxide 25 mmol/L (21-33) 03/21/17 06:25 Anion Gap 14 (10-20) 03/21/17 06:25 BUN 14 mg/dL (7-21) 03/21/17 06:25 Creatinine 1.0 mg/dL (0.5-1.4) 03/21/17 06:25 Est GFR ( Amer) > 60 03/21/17 06:25 Est GFR (Non-Af Amer) > 60 03/21/17 06:25 Random Glucose 104 mg/dL (70-110) 03/21/17 06:25 Hemoglobin A1c 5.8 % (4.2-6.5) 03/19/17 22:24 Calcium 9.6 mg/dL (8.4-10.5) 03/21/17 06:25 Total Bilirubin 0.9 mg/dL (0.2-1.3) 03/21/17 06:25 AST 31 U/L (15-59) 03/21/17 06:25 ALT 47 U/L (7-56) 03/21/17 06:25 Alkaline Phosphatase 65 U/L (38-133) 03/21/17 06:25 Lactate Dehydrogenase 524 U/L (333-699) 03/20/17 12:00 Total Creatine Kinase 413 U/L (35-230) H 03/20/17 12:00 CK-MB (CK-2) 3.1 ng/mL (0.0-3.6) 03/20/17 12:00 CK-MB (CK-2) % 0.9 % (2.5-3.0) L 03/19/17 22:24 Troponin I 0.04 ng/mL 03/20/17 12:00 NT-Pro-B Natriuret Pep 694 pg/mL (0-450) H 03/19/17 22:24 Total Protein 7.4 g/dL (5.8-8.3) 03/21/17 06:25 Albumin 4.3 g/dL (3.0-4.8) 03/21/17 06:25 Globulin 3.1 gm/dL 03/21/17 06:25 Albumin/Globulin Ratio 1.4 (1.1-1.8) 03/21/17 06:25 Triglycerides 57 mg/dL (35-160) 03/19/17 22:24 Cholesterol 193 mg/dL (130-200) 03/19/17 22:24 LDL Cholesterol Direct 91 mg/dL (0-129) 03/19/17 22:24 HDL Cholesterol 88 mg/dL (29-60) H 03/19/17 22:24 Urine Opiates Screen Negative (NEGATIVE) 03/20/17 20:20 Urine Methadone Screen Negative (NEGATIVE) 03/20/17 20:20 Ur Barbiturates Screen Negative (NEGATIVE) 03/20/17 20:20 Ur Phencyclidine Scrn Negative (NEGATIVE) 03/20/17 20:20 Ur Amphetamines Screen Negative (NEGATIVE) 03/20/17 20:20 U Benzodiazepines Scrn Positive (NEGATIVE) H 03/20/17 20:20 U Oth Cocaine Metabols Negative (NEGATIVE) 03/20/17 20:20 U Cannabinoids Screen Positive (NEGATIVE) H 03/20/17 20:20 Hepatitis A IgM Ab Negative (NEGATIVE) 03/20/17 06:15 Hep Bs Antigen Negative (NEGATIVE) 03/20/17 06:15 Hep B Core IgM Ab Negative (NEGATIVE) 03/20/17 06:15 Hepatitis C Antibody Negative (NEGATIVE) 03/20/17 06:15 Discharge Exam - Head Exam Head Exam: ATRAUMATIC, NORMAL INSPECTION, NORMOCEPHALIC Discharge Plan - Discharge Medications Prescriptions: amLODIPine [Norvasc] 10 mg PO DAILY #30 tab Aspirin [Ecotrin] 81 mg PO DAILY #30 Atorvastatin [Lipitor] 10 mg PO DIN #30 tab hydroCHLOROthiazide [Hydrodiuril] 25 mg PO DAILY 30 Days Lisinopril [Zestril] 40 mg PO DAILY #30 tab - Follow Up Plan Condition: FAIR Disposition: HOME/ ROUTINE Referrals: PCP,NO [Primary Care Provider] -
--- NOTE | 2017-03-21 13:26 | PN ---
DATE: 03/21/2017 REASON FOR CONSULTATION AND FOLLOWUP: Acute coronary syndrome, status post cardiac catheterization, ___ obstructive coronary artery disease. BRIEF CLINICAL HISTORY: A 36-year-old male with history of substance abuse, noncompliance with medic ation, off medications 3 years, admitted with chest pain and vomiting. A code STEMI was canceled. T he patient underwent cardiac catheterization as initially considered code STEMI was canceled and subs equently the patient underwent cardiac catheterization that revealed nonobstructive coronary artery d isease, but patient is very noncompliant, started on lisinopril, amlodipine, beta jesse and hydroch lorothiazide. The patient is now stabilized, going for an echo and possible discharge home today. D enies any chest pain, shortness of breath, any palpitation. PHYSICAL EXAMINATION: VITAL SIGNS: Temperature afebrile, heart rate 48, blood pressure 160/80. HEENT: PERRLA. Extraocular muscles intact. NECK: Supple. No carotid bruits. No thyromegaly. CHEST: Clear to auscultation. HEART: S1, S2 regular. ABDOMEN: Soft. EXTREMITIES: Clubbing and cyanosis negative. BLOOD WORKUP: As follows: WBC 11.9, hemoglobin 15, hematocrit 46.0, platelet count 190. Chemistry shows sodium 139, potassium 3.5, chloride 104, carbon dioxide 25, anion gap of 14, creatinine 1. IMPRESSION: Unstable hypertensive heart disease, status post cardiac catheterization, nonobstructive coronary artery disease, uncontrolled hypertension, substance abuse. Tox screen positive for benzod iazepines and marijuana. Noncompliance with medication and bradycardia baseline. RECOMMENDATIONS: We will discontinue beta jesse because of bradycardia, metoprolol, put Coreg 6.25 b.i.d. Continue lisinopril, continue amlodipine, continue hydrochlorothiazide. Possible discharge home today. We will follow with you. Thank you, ____, for providing the opportunity in taking care of the patient. Ronel Mathias MD cc: [id number] TT: 03/21/2017 13:26:10 Confirmation # [id number] Dictation # [id number] shay
[2017-03-21] MEDS ORDERED: Bisacodyl 5mg EC Tab PO ONE (15:49)
[2017-03-21 17:37] VITALS: BP 163/94; PULSE 52; TEMP 98.2
== END 2017-03-21 19:34 | disposition home or self-care (01) ==
LOC: ED 21:25 → ERH 23:27 → 2RNO 03-20 03:15 → 2RSO 03-20 17:13
PROVIDERS: ADMIT Internal Medicine; ATTEND Internal Medicine
DX: I25.110 Atherosclerotic heart disease of native coronary artery with unstable angina pectoris (principal); Z91.14 Patient's other noncompliance with medication regimen; Z91.19 Patient's noncompliance with other medical treatment and regimen; E78.5 Hyperlipidemia, unspecified; E87.6 Hypokalemia; F12.90 Cannabis use, unspecified, uncomplicated; F17.210 Nicotine dependence, cigarettes, uncomplicated; I11.0 Hypertensive heart disease with heart failure; I50.9 Heart failure, unspecified; I24.9 Acute ischemic heart disease, unspecified; I42.8 Other cardiomyopathies; J45.20 Mild intermittent asthma, uncomplicated; K59.00 Constipation, unspecified; Z79.82 Long term (current) use of aspirin; Z82.49 Family history of ischemic heart disease and other diseases of the circulatory system
CPT/HCPCS: 36415; 71010; 74000; 80053; 80061; 80074; 80324; 80345; 80346; 80349; 80353; 80358; 80361; 82550; 82553; 83036; 83615; 83880; 83992; 84484; 85025; 85610; 85730; 93005; 93306; 93458; 96365; 96366; 96372; 96375; 96376; 99152; 99285; C1769; C1887; G0378; J0360; J1644; J1650; J1940; J2250; J2405; J3010; J3480; J7040